=== PATIENT | female | born 1950 | race Caucasian/White ===

== ENCOUNTER 2016-10-23 16:27 | Emergency (ER) | payer BC, MEDICAID ==
[~2016-10-23] VITALS: Ht 152.4 cm; Wt 79.5 kg
[2016-10-23 16:28] VITALS: Ht 152.4 cm; Wt 79.5 kg
[2016-10-23] MEDS ORDERED: PRED20TA PO (16:42)
[2016-10-23] MEDS ORDERED: TRIA60LO10 TOP (16:42)
--- NOTE | 2016-10-23 17:05 | ERD ---
ER Documentation Chief Complaint Date/Time DATE: 10/23/16 TIME: 16:55 Chief Complaint neck rash since monday HPI This is a 66-year-old female presenting to emergency department for rash to anterior neck 3 days. Patient states rash is red, itchy with a burning sensation. No difficulty breathing or shortness of breath. No wheezing. No drainage from lesions. No fevers or chills. No one else in the household with similar rash. ROS All systems reviewed and are negative except as per history of present illness. Medications Home Meds Active Scripts Triamcinolone Acetonide (Triamcinolone Acetonide) 0.025% - 60 Ml Lotion, 1 APPLIC TOP QID, #1 BOTTLE Prov:ISMAEL TIERNEY NP 10/23/16 Prednisone (Prednisone) 20 Mg Tab, 40 MG PO DAILY for 5 Days, TAB Prov:ISMAEL TIERNEY NP 10/23/16 Physical Exam Vitals Vital Signs Date Time Temp Pulse Resp B/P Pulse Ox O2 Delivery O2 Flow Rate FiO2 10/23/16 16:28 98.0 78 18 130/85 99 Physical Exam Const: alert, non-ill appearing Head: Atraumatic Eyes: Normal Conjunctiva ENT: Normal External Ears, Nose and Mouth. Neck: Full range of motion..~ No meningismus. Resp: Clear to auscultation bilaterally Cardio: Regular rate and rhythm, no murmurs Abd: Soft, non tender, non distended. Normal bowel sounds Skin: Diffused erythematous rash with areas of raised cysts to anterior neck extending to upper chest. Rash is blanchable. No fluctuant lesions. No drainage. No crusting or excoriation. No sloughing. No vesicular lesions. Back: No midline or flank tenderness Ext: No cyanosis, or edema Neur: Awake and alert Psych: Normal Mood and Affect Procedures/MDM MDM: This is a 66-year-old female presenting to the emergency department for rash to anterior neck 3 days. Patient just describes rash as pruritic and burning. Rash extends over entire neck and mid chest. Rash is blanchable. No fevers. Patient tried hydrocortisone with no relief. No s/s respiratory distress. Vitals are stable. Remained afebrile. Differential diagnosis includes but not limited to allergic reaction, contact dermatitis, eczema, Herpes zoster, Herpes simplex virus, bacterial infection and fungal infection. Less likely Herpes zoster or HSV because rash extends over entire anterior neck and chest crossing dermatomes. There are no vesicular or pustular lesions. Less likely bacterial infection because there is no fever or chills. Patient will be given prescription for prednisone and triamcinolone cream. Instructed patient to follow up with PCP in the next 24-48 hours if no improvement or for additional management. Return to ED for any high fever, chest pain, difficulty breathing, shortness breath, wheezing, vomiting, diarrhea , abdominal pain or any new or worsening symptoms. Patient verbalizes understanding. All questions answered at discharge. Departure Diagnosis: Primary Impression: Rash Condition: Stable Patient Instructions: Self-Care for Skin Rashes, Allergic Reaction, Other ( General) Referrals: [facility], [facility] YOU HAVE RECEIVED A MEDICAL SCREENING EXAM AND THE RESULTS INDICATE THAT YOU DO NOT HAVE A CONDITION THAT REQUIRES URGENT TREATMENT IN THE EMERGENCY DEPARTMENT. FURTHER EVALUATION AND TREATMENT OF YOUR CONDITION CAN WAIT UNTIL YOU ARE SEEN IN YOUR DOCTORS OFFICE WITHIN THE NEXT 1-2 DAYS. IT IS YOUR RESPONSIBILITY TO MAKE AN APPOINTMENT FOR FOLOW-UP CARE. IF YOU HAVE A PRIMARY DOCTOR --you should call your primary doctor and schedule an appointment IF YOU DO NOT HAVE A PRIMARY DOCTOR YOU CAN CALL OUR PHYSICIAN REFERRAL HOTLINE AT IF YOU CAN NOT AFFORD TO SEE A PHYSICIAN YOU CAN CHOSE FROM THE FOLLOWING [facility] [address] [facility]. [facility] [address] [facility] [facility] [address] [facility] [address] [facility] [facility] [address] [facility]. [facility]. [address] [facility]. [facility] YOU HAVE RECEIVED A MEDICAL SCREENING EXAM AND THE RESULTS INDICATE THAT YOU DO NOT HAVE A CONDITION THAT REQUIRES URGENT TREATMENT IN THE EMERGENCY DEPARTMENT. FURTHER EVALUATION AND TREATMENT OF YOUR CONDITION CAN WAIT UNTIL YOU ARE SEEN IN YOUR DOCTORS OFFICE WITHIN THE NEXT 1-2 DAYS. IT IS YOUR RESPONSIBILITY TO MAKE AN APPOINTMENT FOR FOLOW-UP CARE. IF YOU HAVE A PRIMARY DOCTOR --you should call your primary doctor and schedule and appointment IF YOU DO NOT HAVE A PRIMARY DOCTOR YOU CAN CALL OUR PHYSICIAN REFERRAL HOTLINE AT . IF YOU CAN NOT AFFORD TO SEE A PHYSICIAN YOU CAN CHOSE FROM THE FOLLOWING [facility]: [facility] [address] [place] [address] [facility] [address] [place] [address] [facility] [address] [place] [address] Additional Instructions: Call your primary care doctor TOMORROW for an appointment during the next 2-3 days.See the doctor sooner or return here if your condition worsens before your appointment time. Return to ED for any high fever, chest pain, difficulty breathing, shortness breath, wheezing, vomiting, diarrhea, abdominal pain or any new or worsening symptoms. ISMAEL TIERNEY NP Oct 23, 2016 17:05
== END 2016-10-23 16:45 | disposition home or self-care (01) ==
LOC: E/R 16:27
DX: R21 Rash and other nonspecific skin eruption (principal)
CPT/HCPCS: 99284